=== PATIENT | female | born 1940 | race Caucasian/White ===

== ENCOUNTER → 2017-01-19 | Outpatient (CLI) | payer MEDICARE, OTHER ==
[~2017-01-19] MED LIST: ASPIRIN81 M1 PO; BACTRIM DS TABL1 TA1 PO; CRESTOR10 MG DOB; CRESTOR10 MG PO; DOXYCYCLINE PO; FLAGYL PO; ILOTYCIN OP; LEVAQUIN PO; LISINOPRIL PO; NAMENDA10 MG; NEXIUM; NEXIUM PO; NORCO 5/325 TAB1 TAB PO; PHENERGAN PO; ST. JOSEPH ASPI81 M3 PO; SYNTHROID PO; SYNTHROID75 MCG; SYNTHROID75 MCG PO; TOPROL XL PO; TOPROL XL50 MG PO; TRIAMCINOLONE A15 G2 TOP; TYLENOL #3 PO; ZOFRAN ODT4 MG PO; ZYRTEC PO
--- NOTE | ~2017-01-19 | MY11 ---
[facility] RADIOLOGY TEXT RESULTS PATIENT: MARIA ELENA RAM LOCATION: [facility] : 44 UNIT #: [id number] AGE: [address]: Cadence Dan MD SEX: F ORDER DR: [id number] [place], [place] [address] [id number] O MR#: [id number] Acc #: [id number] NAME: MARIA ELENA RAM. : 1940 SEX: F STUDY DATE/TIME: 01/19/2017 13:32 UNIT: [facility] ROOM: STUDY DESCRIPTION: MY Mammogram Screening Dig Kar Attending Physician: Cadence Dan M.D. Ordering Physician: Cadence Dan M.D. Primary Care Physician: Cadence Dan M.D. MEDICAL IMAGING REPORT This report is preliminary unless electronic signature is present EXAM Bilateral digital screening mammogram with CAD DATE 01/19/2017 HISTORY 76-year-old female with no personal or family history of breast cancer or current complaints. COMPARISON Bilateral screening mammogram 02/08/2016, 01/01/2015, 12/29/2013. FINDINGS CC and MLO views were obtained of each breast utilizing digital technique and reviewed with an FDA-approved CAD device. Scattered fibroglandular densities are present bilaterally. No suspicious nodule, architectural distortion or clustered microcalcification is seen. IMPRESSION BIRADS 1. Negative screening mammogram. Routine screening mammogram is recommended in 1 year. Patients over the age of 40 are entered into a reminder system with target due date for the next mammogram. A result letter will also be sent to the patient. BIRADS: 1 - Negative Dictated by... Ruby Milligan M.D. [facility] RADIOLOGY TEXT RESULTS PATIENT: MARIA ELENA RAM LOCATION: [facility] : 44 UNIT #: [id number] AGE: [address]: Cadence Dan MD SEX: F ORDER DR: THIS IS AN ELECTRONICALLY VERIFIED REPORT Ruby Milligan M.D. at 01/22/2017 8:30 AM Ale TD: 01/19/2017 15:38 JOB #: [id number] MEDICAL IMAGING REPORT Page 1 of 1 COPY
--- NOTE | ~2017-01-19 | BD1 ---
[facility] RADIOLOGY TEXT RESULTS PATIENT: MARIA ELENA RAM LOCATION: [facility] : 42 UNIT #: [id number] AGE: [address]: Cadence Dan MD SEX: F ORDER DR: [id number] [facility] [place], [place] [address] [id number] O MR#: [id number] Acc #: [id number] NAME: MARIA ELENA RAM. : 1940 SEX: F STUDY DATE/TIME: 01/19/2017 13:28 UNIT: [facility] ROOM: STUDY DESCRIPTION: BD Dexa Bone Dens 1+ Site Attending Physician: Cadence Dan M.D. Ordering Physician: Cadence Dan M.D. Primary Care Physician: Cadence Dan M.D. MEDICAL IMAGING REPORT This report is preliminary unless electronic signature is present EXAM DXA scan 01/19/2017 HISTORY 76-year-old postmenopausal female for osteoporosis screening. Family history of osteoporosis in a mother and grandmother. COMPARISON DXA scan 01/01/2015. FINDINGS L1-L4 total bone mineral density is 0.926 g/cm2 with T-score -1.1 and Z-score 1.3, corresponding to the range of osteopenia. This represents an 8.0% increase in bone mineral density since 01/01/2015 which is statistically significant. The left femoral neck bone mineral density is 0.641 g/cm2 with T-score -1.9 and Z-score 0.2, corresponding to the range of osteopenia. This represents a 1.6% increase in bone mineral density since 01/01/2015 which is not statistically significant. IMPRESSION 1. Osteopenia within the lumbar spine and within the left femoral neck. 2. There has been a statistically significant increase in bone mineral density within the lumbar spine in comparison to the DXA scan from 01/01/2015. Dictated by.Amina Milligan M.D. THIS IS AN ELECTRONICALLY VERIFIED REPORT [facility] RADIOLOGY TEXT RESULTS PATIENT: MARIA ELENA RAM LOCATION: [facility] : 42 UNIT #: [id number] AGE: [address]: Cadence Dan MD SEX: F ORDER DR: Ruby Milligan M.D. at 01/22/2017 8:30 AM GUCCI/jorge TD: 01/19/2017 18:04 JOB #: [id number] MEDICAL IMAGING REPORT Page 1 of 1 COPY
== END | disposition home or self-care (01) ==
LOC: CWCC 12:56
DX: Z13.820 Encounter for screening for osteoporosis (principal); Z12.31 Encounter for screening mammogram for malignant neoplasm of breast; Z78.0 Asymptomatic menopausal state; M85.89 Other specified disorders of bone density and structure, multiple sites
CPT/HCPCS: 77080; G0202